=== PATIENT | female | born 1950 | race Caucasian/White ===

== ENCOUNTER → 2016-09-27 | Outpatient (CLI) | payer MEDICARE, OTHER | LOC: BRMIMAGING 10:49 | PROVIDERS: ATTEND Family Medicine | DX: Z12.31 Encounter for screening mammogram for malignant neoplasm of breast (principal) | CPT/HCPCS: G0202 ==

== ENCOUNTER → 2017-11-10 | Outpatient (CLI) | payer OTHER | LOC: BRMIMAGING 15:13 | DX: Z12.31 Encounter for screening mammogram for malignant neoplasm of breast (principal); Z80.3 Family history of malignant neoplasm of breast ==